=== PATIENT | female | born 1985 | race Caucasian/White ===

== ENCOUNTER 2016-08-08 05:40 | Day surgery (SDC) | payer OTHER ==
[2016-08-04 11:24] LABS: HEMATOCRIT 35.1 % (36.0-47.0); HEMOGLOBIN 11.9 g/dL (12.0-15.5); HGB HCT DIFFERENCE 0.6; MEAN CORPUSCULAR HEMOGLOBIN 26.9 pg (27.0-33.4); MEAN CORPUSCULAR HGB CONC 33.9 g/dL (32.0-36.0); MEAN CORPUSCULAR VOLUME 79 fl (80-97); RED BLOOD COUNT 4.43 10^6/uL (3.72-5.28); RED CELL DISTRIBUTION WIDTH 13.5 % (11.5-14.0); WHITE BLOOD COUNT 5.6 10^3/uL (4.0-10.5)
[2016-08-04 11:37] LABS: APPEARANCE,URINE SLIGHTLY-CLOUDY; BILIRUBIN,URINE NEGATIVE (NEGATIVE); GLUCOSE, URINE NEGATIVE (NEGATIVE); KETONES,URINE NEGATIVE (NEGATIVE); LEUKOCYTE ESTERASE,URINE TRACE (NEGATIVE); NITRITE,URINE NEGATIVE (NEGATIVE); PROTEIN,URINE NEGATIVE (NEGATIVE); URINE SPECIFIC GRAVITY 1.028; UROBILINOGEN,URINE NEGATIVE mg/dL (<2.0)
[2016-08-04 11:51] LABS: ALANINE AMINOTRANSFERASE 53 U/L (9-52); ALKALINE PHOSPHATASE 69 U/L (38-126); ANION GAP 10 (5-19); ASPARTATE AMINO TRANSFERASE 37 U/L (14-36); BILIRUBIN,TOTAL 0.7 mg/dL (0.2-1.3); BLOOD UREA NITROGEN 13 mg/dL (7-20); CALCIUM 9.3 mg/dL (8.4-10.2); CARBON DIOXIDE 26 mmol/L (22-30); CHLORIDE 105 mmol/L (98-107); CREATININE RESULT 0.74 mg/dL (0.52-1.25); GLUCOSE 79 mg/dL (75-110); SODIUM 141.4 mmol/L (137-145); TOTAL PROTEIN 7.7 g/dL (6.3-8.2)
[2016-08-04 11:54] LABS: POTASSIUM 4.1 mmol/L (3.6-5.0)
[~2016-08-08 05:40] MED LIST: CEFAZOLIN 2 GM/D5W RTU 2 GM/50 ML RTUPB IV PRN; CEFAZOLIN SODIUM 2 GM in DEXTROSE 5%-WATER 100 ML IV PRN; LACTATED RINGERS 1000 ML IV PRN; LIDOCAINE 0.5% INJ-PF (5 MG/ML) 50 ML SDV SUBCUT PRN; NA PHOS,M-B/NA PHOS,DI-BA (ADULT) 133 ML ENEMA PR SCH
[2016-08-08] MEDS ORDERED: HYDROMORPHONE HCL INJ/PF 2 MG/ML AMPULE ONE (06:59)
[2016-08-08] MEDS ORDERED: MIDAZOLAM 2 MG/2 ML INJ ONE (06:59)
[2016-08-08] MEDS ORDERED: FENTANYL CITRATE INJ/PF 250 MCG/5 ML AMPULE ONE (06:59)
[2016-08-08] MEDS ORDERED: PROPOFOL INJ 200 MG/20 ML VIAL IV ONE (07:00)
[2016-08-08] MEDS ORDERED: ACETAMINOPHEN 100 ML IV ONE ×2 (07:00→14:00)
[2016-08-08] MEDS ORDERED: MEPERIDINE HCL/PF INJ 25 MG/1 ML DISP.SYRIN IV PRN (07:17)
[2016-08-08] MEDS ORDERED: DIPHENHYDRAMINE HCL 50 MG/ML VIAL IV PRN (07:17)
[2016-08-08] MEDS ORDERED: ONDANSETRON HCL INJ/PF 4 MG/2 ML SDV IV PRN ×2 (07:17→10:51)
[2016-08-08] MEDS ORDERED: MORPHINE SULFATE 10 MG/ML INJ IV PRN (07:17)
[2016-08-08] MEDS ORDERED: FENTANYL CITRATE INJ/PF 100 MCG/2 ML AMPUL IV PRN ×3 (07:17)
[2016-08-08] MEDS ORDERED: DIPHENHYDRAMINE HCL 50 MG/ML VIAL ONE (10:11)
[2016-08-08] MEDS ORDERED: SCOPOLAMINE HYDROBROMIDE 1.5 MG PATCH.TD72 ONE (10:18)
--- NOTE | 2016-08-08 10:31 | Operative Report ---
Operative Report DATE OF SURGERY: 08/08/16 PREOPERATIVE DIAGNOSIS: Chronic pelvic pain and heavy menses POSTOPERATIVE DIAGNOSIS: Same OPERATION: Robotic hysterectomy right salpingo-oophorectomy SURGEON: CRICKET EDDY [employer]INE [employer]URAL WELDER: OR staff ANESTHESIA: GA TISSUE REMOVED OR ALTERED: Uterus cervix right tube and ovary COMPLICATIONS: None ESTIMATED BLOOD LOSS: 100 mL INTRAOPERATIVE FINDINGS: Left ovary and tube appeared normal and were left in place PROCEDURE: The patient was taken back to the OR and placed in supine position. Gen. anesthesia was induced. She was placed in dorsolithotomy position using Marino stirrups. Her abdomen perineum and vagina were prepared and draped in sterile fashion. The Transerv care uterine manipulator was placed on the cervix. The Sheets was placed in the bladder. The incision was made above the umbilicus. The fascia was grasped and elevated and incised entering the abdominal cavity. The laparoscopic port was placed bluntly and laparoscopy confirmed appropriate placement. The 2 lateral ports were placed under laparoscopic visualization. The right lower quadrant port was placed under laparoscopic visualization. The robot was brought to the table after positioning the patient. The robot was docked. The insufflation device had been placed in the right lower quadrant port. View of the pelvis was very good. There were no adhesions. The right infundibulopelvic pedicle was ligated with bipolar cautery and cut with monopolar cautery. The ureter was identified well away from the pedicle prior to doing this. The broad ligament was cauterized and cut next to the right fallopian tube and moving toward the uterine body. The round ligament was cauterized and cut with bipolar and then monopolar cautery. Staying next to the uterine body the broad ligament was cauterized with bipolar and cut with monopolar anthony. On reaching the uterine artery staying next to uterine body of the uterine artery vessels were cauterized with bipolar and cut with monopolar. Next moving to the left side of the uterus and the ovary was left in place and therefore the utero-ovarian pedicle as well as the round ligament pedicle were cauterized with bipolar and cut with monopolar. The broad ligament was cauterized with bipolar and cut with monopolar cautery staying next to the uterine body. At the level of the uterine arteries staying next to the uterine body the vessels were cauterized with bipolar and cut with monopolar anthony. Anterior leaf of the broad ligament was cut creating a bladder flap. This tissue fell away nicely from the cervix. Next the cardinal ligaments were cauterized next to the cervix with bipolar cautery and cut with monopolar anthony. Upon reaching the vaginal cuff a circumferential incision was made on the V care cuff. The uterus was removed through the vagina. The vaginal cuff was then closed using 0 locked suture. This suture was started on the right side of the cuff incorporating anterior vaginal mucosa lateral vaginal sidewall and posterior vaginal mucosa. The suture was then placed in a running fashion incorporating anterior vaginal mucosa posterior vaginal cuff was it. Upon reaching the left angle anterior vaginal mucosa lateral vaginal sidewall and posterior vaginal cuff was brought together with the suture. Several running sutures were taken medially and the suture was then cut. Next each pedicle was inspected for bleeding. The pelvis was irrigated and fluid aspirated out of the pelvis with the suction device. Hemostasis was assured. The robot was undocked. Each port was removed under laparoscopic visualization. The umbilical port and scope were removed at same time. The fascia at the umbilicus was closed with a 2-0 Vicryl suture in a running fashion. Then at all 4 sites was closed with a 4-0 undyed Vicryl suture in a subcuticular fashion. The wounds were dressed. Patient was brought out anesthesia and taken to recovery room stable condition.
[2016-08-08] MEDS ORDERED: RINGERS SOLUTION,LACTATED 1,000 ML IV PRN (10:51)
[2016-08-08] MEDS ORDERED: HYDROMORPHONE HCL 2 MG TABLET PO PRN ×2 (10:52→10:53)
[2016-08-08] MEDS ORDERED: HYDROMORPHONE HCL INJ/PF 2 MG/ML AMPULE IV PRN ×2 (10:52→10:53)
[2016-08-08] MEDS ORDERED: VECURONIUM BROMIDE INJ 10 MG VIAL IV ONE (11:03)
[2016-08-08] MEDS ORDERED: KETOROLAC TROMETHAMINE 60 MG/2 ML SDV ONE (11:03)
[2016-08-08] MEDS ORDERED: LIDOCAINE 2% INJ-PF (20 MG/ML) 10 ML AMPUL ONE (11:03)
[2016-08-08] MEDS ORDERED: NEOSTIGMINE METHYLSULFATE 10 MG/10 ML VIAL ONE (11:03)
[2016-08-08] MEDS ORDERED: ONDANSETRON HCL INJ/PF 4 MG/2 ML SDV ONE (11:03)
[2016-08-08] MEDS ORDERED: DEXAMETHASONE SOD PHOSPHATE INJ 4 MG/1 ML VIAL ONE (11:03)
[2016-08-08] MEDS ORDERED: GLYCOPYRROLATE INJ 0.4 MG/2 ML VIAL ONE (11:03)
[2016-08-08] MEDS ORDERED: RINGERS SOLUTION,LACTATED 500 ML IV ONE (13:15)
[2016-08-08 15:54] LABS: HEMATOCRIT 33.7 % (36.0-47.0); HEMOGLOBIN 11.2 g/dL (12.0-15.5); HGB HCT DIFFERENCE -0.1; MEAN CORPUSCULAR HEMOGLOBIN 26.6 pg (27.0-33.4); MEAN CORPUSCULAR HGB CONC 33.4 g/dL (32.0-36.0); MEAN CORPUSCULAR VOLUME 80 fl (80-97); RED BLOOD COUNT 4.22 10^6/uL (3.72-5.28); RED CELL DISTRIBUTION WIDTH 13.7 % (11.5-14.0); WHITE BLOOD COUNT 11.4 10^3/uL (4.0-10.5)
[2016-08-08 16:16] LABS: ANION GAP 11 (5-19); BLOOD UREA NITROGEN 11 mg/dL (7-20); CARBON DIOXIDE 24 mmol/L (22-30); CHLORIDE 103 mmol/L (98-107); GLUCOSE 119 mg/dL (75-110); POTASSIUM 4.5 mmol/L (3.6-5.0); SODIUM 137.5 mmol/L (137-145)
[2016-08-08] MEDS ORDERED: KETOROLAC TROMETHAMINE INJ/PF 30 MG/1 ML SDV IV ONE (18:00)
[2016-08-08] MEDS: ACETAMINOPHEN WITH CODEINE #3 TABLET PO PRN (19:46)
[2016-08-09 06:20] LABS: HEMATOCRIT 29.7 % (36.0-47.0); HGB HCT DIFFERENCE 0.3; MEAN CORPUSCULAR HEMOGLOBIN 26.9 pg (27.0-33.4); MEAN CORPUSCULAR HGB CONC 33.7 g/dL (32.0-36.0); MEAN CORPUSCULAR VOLUME 80 fl (80-97); RED BLOOD COUNT 3.73 10^6/uL (3.72-5.28); RED CELL DISTRIBUTION WIDTH 13.6 % (11.5-14.0); WHITE BLOOD COUNT 7.7 10^3/uL (4.0-10.5)
[2016-08-09 06:39] LABS: ANION GAP 7 (5-19); BLOOD UREA NITROGEN 10 mg/dL (7-20); CALCIUM 8.5 mg/dL (8.4-10.2); CARBON DIOXIDE 25 mmol/L (22-30); CHLORIDE 106 mmol/L (98-107); CREATININE RESULT 0.65 mg/dL (0.52-1.25); GLUCOSE 96 mg/dL (75-110); POTASSIUM 4.1 mmol/L (3.6-5.0); SODIUM 137.7 mmol/L (137-145)
[2016-08-09] MEDS: ACETAMINOPHEN WITH CODEINE #3 TABLET PO PRN (09:09)
--- NOTE | 2016-08-09 09:28 | PDOC PROGRESS REPORT ---
Subjective Progress Note for:: 08/09/16 Subjective:: Doing well. Physical Exam - Physical Exam Vital Signs: Temp Pulse Resp BP Pulse Ox 98.6 F 73 16 109/62 100 08/09/16 08:25 08/09/16 08:25 08/09/16 08:25 08/09/16 08:25 08/09/16 08:25 Intake & Output 08/08/16 08/09/16 08/10/16 06:59 06:59 06:59 Intake Total 0 1580 Output Total 1325 Balance 0 255 Weight 81.65 kg General appearance: PRESENT: no acute distress Head exam: PRESENT: atraumatic GI/Abdominal exam: PRESENT: normal bowel sounds, soft. ABSENT: distended, guarding, mass, organolmegaly, rebound, tenderness Psychiatric exam: PRESENT: appropriate affect, normal mood. ABSENT: homicidal ideation, suicidal ideation - Gynecological Exam Labia: normal Urethra: normal Introitus: normal Perineum: normal Result Laboratory Results: 08/09/16 06:07 08/09/16 06:07 08/08/16 08/08/16 08/09/16 15:45 15:45 06:07 WBC 11.4 H 7.7 RBC 4.22 3.73 Hgb 11.2 L 10.0 L Hct 33.7 L 29.7 L MCV 80 80 MCH 26.6 L 26.9 L MCHC 33.4 33.7 RDW 13.7 13.6 Plt Count 222 193 Sodium 137.5 Potassium 4.5 Chloride 103 Carbon Dioxide 24 Anion Gap 11 BUN 11 Creatinine 0.60 Est GFR ( Amer) > 60 Est GFR (Non-Af Amer) > 60 Glucose 119 H Calcium 9.0 08/09/16 06:07 WBC RBC Hgb Hct MCV MCH MCHC RDW Plt Count Sodium 137.7 Potassium 4.1 Chloride 106 Carbon Dioxide 25 Anion Gap 7 BUN 10 Creatinine 0.65 Est GFR ( Amer) > 60 Est GFR (Non-Af Amer) > 60 Glucose 96 Calcium 8.5 Assessment & Plan - Diagnosis (1) Pelvic pain Is this a current diagnosis for this admission?: Yes (2) Menorrhagia Qualifiers: Menorrahagia type: with irregular cycle Qualified Code(s): N92.1 - Excessive and frequent menstruation with irregular cycle Is this a current diagnosis for this admission?: Yes - Time Time Spent with patient: 15-24 minutes Medications reviewed and adjusted accordingly: Yes Anticipated discharge: Home Within: within 24 hours Disposition: followup in a week
--- NOTE | 2016-08-09 09:31 | PDOC DISCHARGE SUMMARY ---
Final Diagnosis Discharge Date: 08/09/16 - Final Diagnosis (1) Pelvic pain Is this a current diagnosis for this admission?: Yes (2) Menorrhagia Is this a current diagnosis for this admission?: Yes Discharge Data - Discharge Medication Home Medications: No Home Medications 08/04/16 Reason(s) for Admission: Other - Pelvic pain and menorrhagia Admission Note: Patient was admitted for robotic hysterectomy. Due to her pelvic pain she also wished to have her right ovary and tube removed. - Diagnosis Test Laboratory: Temp Pulse Resp BP Pulse Ox 98.6 F 73 16 109/62 100 08/09/16 08:25 08/09/16 08:25 08/09/16 08:25 08/09/16 08:25 08/09/16 08:25 08/04/16 08/08/16 08/09/16 10:35 15:45 06:07 RBC 4.43 4.22 3.73 Hgb 11.9 L 11.2 L 10.0 L Hct 35.1 L 33.7 L 29.7 L - Discharge information/Instructions Discharge Activity: Balance Activity w/Rest, Pelvic Rest Discharge Diet: As Tolerated Disposition: HOME, SELF-CARE Follow up with: [facility] in: 1 - Week
[2016-08-09 10:18] VITALS: BP 122/76
== END 2016-08-09 10:50 | disposition home or self-care (01) ==
LOC: OROUT 05:40 → 2N 11:15 → OROUT 08-09 10:50
PROVIDERS: ATTEND Obstetrics & Gynecology
PROC: 0UTC4ZZ Resection of Cervix, Percutaneous Endoscopic Approach (ICD-10-PCS; 2016-08-08)
PROC: 0UT04ZZ Resection of Right Ovary, Percutaneous Endoscopic Approach (ICD-10-PCS; 2016-08-08)
PROC: 0UT54ZZ Resection of Right Fallopian Tube, Percutaneous Endoscopic Approach (ICD-10-PCS; 2016-08-08)
PROC: 8E0W4CZ Robotic Assisted Procedure of Trunk Region, Percutaneous Endoscopic Approach (ICD-10-PCS; 2016-08-08)
PROC: 0UT94ZZ Resection of Uterus, Percutaneous Endoscopic Approach (ICD-10-PCS; principal; 2016-08-08 07:30)
DX: N83.201 Unspecified ovarian cyst, right side (principal); R10.2 Pelvic and perineal pain; N92.0 Excessive and frequent menstruation with regular cycle; N72 Inflammatory disease of cervix uteri; N30.10 Interstitial cystitis (chronic) without hematuria; Z79.899 Other long term (current) drug therapy
CPT/HCPCS: 58571; S2900; 36415; 80048; 80053; 81001; 81025; 840; 85027; 86850; 86900; 86901; 88307; J0131; J0690; J1100; J1170; J1200; J1885; J2250; J2405; J2704; J3010; J3490; J7120

== ENCOUNTER 2019-04-03 10:33 | Emergency (ER) | payer SELFPAY ==
[2019-04-03] MEDS ORDERED: DIPHENHYDRAMINE HCL 50 MG/ML VIAL IV ONE (11:57)
[2019-04-03] MEDS ORDERED: FAMOTIDINE INJ/PF 20 MG/2 ML SDV IV ONE (11:57)
--- NOTE | 2019-04-03 13:31 | ER Document Report ---
Entered by SERINA ANTHONY SCRIBE 04/03/19 1156 Acting as scribe for:AMANDA PRUITT MD ED General - General Chief Complaint: Facial Droop Stated Complaint: FACIAL NUMBNESS Time Seen by Provider: 04/03/19 11:40 Primary Care Provider: DAVID SHELBY MD [Primary Care Provider] - Follow up as needed Information source: Patient Notes: 33-year-old female who presents to the emergency department today for right- sided facial swelling. Patient states last night she noticed that her hands were very itchy and she felt nauseated but did not think anything of it. Pat ient states this morning when she woke up her right eye was puffy and as the day has gone on this swelling has moved down the right side of her face. Patient states her face is not itchy. Patient states her face goes from feeling numb to having pain. Patient states she has minimally blurry vision of her right eye. Patient states the only thing she knows that she is allergic to his Phenergan. TRAVEL OUTSIDE OF THE [place] IN LAST 30 DAYS: No - Related Data Allergies/Adverse Reactions: latex [Latex] Allergy (Severe, Verified 08/04/16 09:59) rash promethazine [From Phenergan] Allergy (Severe, Verified 08/04/16 10:20) Hives Past Medical History - General Information source: Patient - Social History Smoking Status: Never Smoker Cigarette use (# per day): No Chew tobacco use (# tins/day): No Frequency of alcohol use: Occasional Drug Abuse: None Occupation: [employer] Family History: Reviewed & Not Pertinent Patient has suicidal ideation: No Patient has homicidal ideation: No Renal/ Medical History: Reports: Hx Kidney Stones, Hx Ovarian Cysts Past Surgical History: Reports: Hx Tubal Ligation - Immunizations Hx Diphtheria, Pertussis, Tetanus Vaccination: Yes Review of Systems - Review of Systems Constitutional: No symptoms reported EENT: See HPI, Other - right sided facial swelling Cardiovascular: No symptoms reported Respiratory: No symptoms reported Gastrointestinal: No symptoms reported Genitourinary: No symptoms reported Female Genitourinary: No symptoms reported Musculoskeletal: No symptoms reported Skin: See HPI Hematologic/Lymphatic: No symptoms reported Neurological/Psychological: No symptoms reported -: Yes All other systems reviewed and negative Physical Exam - Vital signs Vitals: Temp Pulse Resp BP Pulse Ox 97.8 F 77 16 129/71 H 98 04/03/19 10:38 04/03/19 10:38 04/03/19 10:38 04/03/19 10:38 04/03/19 10:38 - Notes Notes: Physical Exam: General: Alert, appears well. HEENT: Normocephalic. Atraumatic. PERRL. Extraocular movements intact. Oropharynx clear. No carotid bruits. Mild edema to upper and lower right e yelid. Edema over the infraorbital ridge on the right with tenderness to palpation. Edema over the right zygomatic arch. There is edema to the right upper lip, less edema to the right lower lip. This edema causes some distortion of the face however there is no muscle weakness. Neck: Supple. Non-tender. Respiratory: No respiratory distress. Clear and equal breath sounds bilaterally. Cardiovascular: Regular rate and rhythm. Abdominal: Normal Inspection. Non-tender. No distension. Normal Bowel Sounds. Back: No gross abnormalities. Extremities: Moves all four extremities. Upper extremities: Normal inspection. Normal ROM. Lower extremities: Normal inspection. No edema. Normal ROM. Neurological: Normal cognition. AAOx4. Normal speech. Psychological: Normal affect. Normal Mood. Skin: Mild erythema to bilateral hands palmar aspect. Course - Re-evaluation Re-evalutation: 04/03/19 13:45 At this time the itching to the hands is resolved. The swelling to the lips has resolved. The swelling in the periorbital region has resolved. There appears to be some minimal swelling to the right face persists. 04/03/19 13:45 I have advised the patient that given that the reaction involved only the right face from the eye down to the lips, and both hands, it is likely she came in contact with something on both of her hands and happened to rub the right face transferring the allergen to the skin on the face. - Vital Signs Vital signs: Temp Pulse Resp BP Pulse Ox 97.8 F 77 16 129/71 H 98 04/03/19 10:38 04/03/19 10:38 04/03/19 10:38 04/03/19 10:38 04/03/19 10:38 Discharge - Discharge Clinical Impression: Allergic reaction Qualifiers: Encounter type: initial encounter Qualified Code(s): T78.40XA - Allergy, unspecified, initial encounter Condition: Stable Disposition: HOME, SELF-CARE Additional Instructions: Acute Allergic Reaction Your symptoms are due to an allergic reaction. Allergy can cause hives, swelling of the hands, feet, and face, hoarseness, and difficulty swallowing or breathing. It may be due to exposure to medication, animal dander, foods, infection, or insect bites. Medication is a common cause, even when prior use of this same medication caused no problems. Acute treatment may include adrenalin and antihistamines. Usually, the specific allergic agent can't be identified unless repeated episodes occur. Home treatment includes the following: (1) Stop any suspicious medications. This will be discussed with you. (2) Oral antihistamines for the next four to five days. Example, diphenhydramine (Benadryl) every four hours. (3) You may also use cimetidine (Tagamet), ranitidine (Zantac), or famotidine (Pepcid) every four hours if diphenhydramine is not controlling itching and hives. (4) Avoid aspirin until the hives completely disappear. (5) Avoid hot bahs or showers until the hives are completely gone. Call the doctor if faintness, difficulty swallowing, tightness in the chest, or wheezing occurs. Referrals: DAVID SHELBY MD [Primary Care Provider] - Follow up as needed Scribe Attestation: 04/03/19 13:46 I personally performed the services described in the documentation, reviewed and edited the documentation which was dictated to the scribe in my presence, and it accurately records my words and actions. I personally performed the services described in the documentation, reviewed and edited the documentation which was dictated to the scribe in my presence, and it accurately records my words and actions.
[2019-04-03 14:12] VITALS: BP 126/69
== END 2019-04-03 14:13 | disposition home or self-care (01) ==
LOC: ER 10:33
DX: T78.40XA Allergy, unspecified, initial encounter (principal); R22.0 Localized swelling, mass and lump, head; R51 Headache; R20.0 Anesthesia of skin; H53.8 Other visual disturbances; X58.XXXA Exposure to other specified factors, initial encounter; Z88.8 Allergy status to other drugs, medicaments and biological substances; Z91.040 Latex allergy status
CPT/HCPCS: 99283; 96374; 96375; J1200; S0028

== ENCOUNTER → 2019-05-28 | Outpatient (CLI) | payer SELFPAY ==
--- NOTE | 2019-05-28 12:22 | WOMENS IMAGING REPORT ---
EXAM DESCRIPTION: U/S ABDOMEN LIMITED COMPLETED DATE/TIME: 05/28/2019 8:19 am REASON FOR STUDY: R74.8 ABNORMAL LEVELS OF OTHER SERUM ENZYMES R74.8 ABNORMAL LEVELS OF OTHER SERUM ENZYMES COMPARISON: None. TECHNIQUE: Dynamic and static grayscale images acquired of the abdomen and recorded on PACS. Additio nal selected color Doppler and spectral images recorded. LIMITATIONS: None. FINDINGS: PANCREAS: The pancreas is not visualized due to overlying bowel gas. LIVER: The liver measures 12.0 cm in length, normal size. No masses. Echotexture normal. LIVER VASCULATURE: Normal directional flow of the main portal vein and hepatic veins. GALLBLADDER: The gallbladder is contracted. The patient states that she is NPO. The gallbladder wa ll measures 4.2 mm diffuse gallbladder wall thickening. No pericholecystic fluid. ULTRASOUND-DETECTED MARTINEZ'S SIGN: Negative. INTRAHEPATIC DUCTS AND COMMON DUCT: CBD measures 2.9 mm in diameter, normal. The intrahepatic ducts normal caliber. No filling defects. INFERIOR VENA CAVA: Normal flow. AORTA: No aneurysm. RIGHT KIDNEY: The right kidney measures 9.9 x 4.2 x 4.8 cm, normal size. Normal echogenicity. No neena id or suspicious masses. No hydronephrosis. No calcifications. PERITONEAL AND RIGHT PLEURAL SPACE: No ascites or effusions. OTHER: No other significant findings. IMPRESSION: 1. The gallbladder is contracted and diffuse gallbladder wall thickening is noted. The patient states that she is NPO. Correlation suggested. 2. The pancreas not visualized due to overlying bowel gas. TECHNICAL DOCUMENTATION: JOB ID: [id number] [employer]- All Rights Reserved Reading location - IP/workstation name: [email or web address]
== END ==
LOC: WI 07:15
PROVIDERS: ATTEND Nurse Practitioner Family
DX: R74.8 Abnormal levels of other serum enzymes (principal)
CPT/HCPCS: 76705

== ENCOUNTER 2019-06-10 08:33 | Emergency (ER) | payer SELFPAY ==
[2019-06-10] MEDS ORDERED: ONDANSETRON 4 MG TAB.RAPDIS PO ONE (09:26)
[2019-06-10] MEDS ORDERED: ASPIRIN 81 MG TABLET, CHEWABLE PO ONE (09:26)
--- NOTE | 2019-06-10 09:29 | ER Document Report ---
ED Medical Screen (RME) - General Chief Complaint: Chest Pain Stated Complaint: CHEST PAIN Time Seen by Provider: 06/10/19 09:17 Primary Care Provider: RAVINDER MELENDEZ NP [Primary Care Provider] - Follow up as needed TRAVEL OUTSIDE OF THE [place] IN LAST 30 DAYS: No - HPI Notes: 06/10/19 09:27 33-year-old female presents emergency room for complaints of right upper chest pain that radiates to her shoulder that started 2 days ago as well as right upper quadrant pain that started approximately a week ago, has become progressively worse. Patient did see her PCP for this issue, her liver enzymes were 3 times the upper limit, did have an ultrasound of her liver which appeared normal at the time. Patient states that yesterday her symptoms became progressively worse started vomiting. Patient states that she is awaiting a referral to be seen by a surgeon for cholecystectomy but patient has not heard back from her PCPs office. Denies any fevers chills, diarrhea, shortness of breath. Has not tried any [id number] medications. Patient states she is a social drinker. I have greeted and performed a rapid initial assessment of this patient. A comprehensive ED assessment and evaluation of the patient, analysis of test results and completion of the medical decision making process will be conducted by additional ED providers. PHYSICAL EXAMINATION: GENERAL: Well-appearing, well-nourished and in no acute distress. HEAD: Atraumatic, normocephalic. NECK: Normal range of motion LUNGS: No respiratory distress abd: slight tenderness to RUQ/LUQ Musculoskeletal: Normal range of motion NEUROLOGICAL: Normal speech, normal gait. PSYCH: Normal mood, normal affect. SKIN: Warm, Dry, normal turgor, no rashes or lesions noted. - Related Data Allergies/Adverse Reactions: latex [Latex] Allergy (Severe, Verified 06/10/19 09:15) rash promethazine [From Phenergan] Allergy (Severe, Verified 06/10/19 09:15) Hives Past Medical History - Past Medical History Cardiac Medical History: Denies: Hx Coronary Artery Disease, Hx Heart Attack, Hx Hypertension Pulmonary Medical History: Denies: Hx Asthma, Hx Bronchitis, Hx COPD, Hx Pneumonia Neurological Medical History: Denies: Hx Cerebrovascular Accident, Hx Seizures Renal/ Medical History: Reports: Hx Kidney Stones, Hx Ovarian Cysts Musculoskeltal Medical History: Denies Hx Arthritis Past Surgical History: Reports: Hx Tubal Ligation - Immunizations Hx Diphtheria, Pertussis, Tetanus Vaccination: Yes Physical Exam - Vital signs Vitals: Temp Pulse Resp BP Pulse Ox 99 F 78 18 130/83 H 97 06/10/19 08:54 06/10/19 08:54 06/10/19 08:54 06/10/19 08:54 06/10/19 08:54 Course - Vital Signs Vital signs: Temp Pulse Resp BP Pulse Ox 99 F 78 18 130/83 H 97 06/10/19 09:15 06/10/19 09:15 06/10/19 09:15 06/10/19 09:15 06/10/19 09:15 Doctor's Discharge - Discharge Referrals: RAVINDER MELENDEZ NP [Primary Care Provider] - Follow up as needed
--- NOTE | 2019-06-10 09:52 | RADIOLOGY REPORT (SQ) ---
EXAM DESCRIPTION: CHEST 2 VIEWS COMPLETED DATE/TIME: 06/10/2019 9:37 am REASON FOR STUDY: RUQ/LUQ abd, issue w/ gallballer, liver enzymes COMPARISON: None. EXAM PARAMETERS: NUMBER OF VIEWS: two views TECHNIQUE: Digital Frontal and Lateral radiographic views of the chest acquired. RADIATION DOSE: NA LIMITATIONS: none FINDINGS: LUNGS AND PLEURA: No opacities, masses or pneumothorax. No pleural effusion. MEDIASTINUM AND HILAR STRUCTURES: No masses or contour abnormalities. HEART AND VASCULAR STRUCTURES: Heart normal size. No evidence for failure. BONES: No acute findings. HARDWARE: None in the chest. OTHER: No other significant finding. IMPRESSION: NO ACUTE RADIOGRAPHIC FINDING IN THE CHEST. TECHNICAL DOCUMENTATION: JOB ID: [id number] [employer]- All Rights Reserved Reading location - IP/workstation name: [email or web address]
[2019-06-10 10:11] LABS: ABSOLUTE EOSINOPHILS # (AUTO) 0.2 10^3/uL (0.0-0.6); ABSOLUTE LYMPHOCYTES (AUTO) 1.6 10^3/uL (0.5-4.7); ABSOLUTE MONOCYTES (AUTO) 0.4 10^3/uL (0.1-1.4); ABSOLUTE NEUT (AUTO) 3.4 10^3/uL (1.7-8.2); BASOPHILS % (AUTO) 0.5 % (0-2); EOSINOPHILS % (AUTO) 3.1 % (0-6); LYMPHOCYTES % (AUTO) 28.8 % (13-45); MEAN CORPUSCULAR HEMOGLOBIN 29.1 pg (27.0-33.4); MEAN CORPUSCULAR HGB CONC 34.3 g/dL (32.0-36.0); MEAN CORPUSCULAR VOLUME 85 fl (80-97); MONOCYTES % (AUTO) 6.3 % (3-13); PLATELET COUNT 290 10^3/uL (150-450); RED BLOOD COUNT 4.48 10^6/uL (3.72-5.28); RED CELL DISTRIBUTION WIDTH 12.7 % (11.5-14.0); SEGMENTED NEUTROPHILS % (AUTO) 61.3 % (42-78); TOTAL CELLS COUNTED % (AUTO) 100 %; WHITE BLOOD COUNT 5.6 10^3/uL (4.0-10.5)
[2019-06-10 10:23] LABS: APPEARANCE,URINE SLIGHTLY-CLOUDY; BILIRUBIN,URINE NEGATIVE (NEGATIVE); COLOR,URINE YELLOW; GLUCOSE, URINE NEGATIVE (NEGATIVE); KETONES,URINE NEGATIVE (NEGATIVE); LEUKOCYTE ESTERASE,URINE NEGATIVE (NEGATIVE); NITRITE,URINE NEGATIVE (NEGATIVE); PROTEIN,URINE NEGATIVE (NEGATIVE); UROBILINOGEN,URINE NEGATIVE mg/dL (<2.0)
[2019-06-10 10:33] LABS: ALBUMIN 4.5 g/dL (3.5-5.0); ALKALINE PHOSPHATASE 70 U/L (38-126); ANION GAP 10 (5-19); ASPARTATE AMINO TRANSFERASE 28 U/L (14-36); BILIRUBIN,DIRECT 0.1 mg/dL (0.0-0.4); BILIRUBIN,TOTAL 0.7 mg/dL (0.2-1.3); BLOOD UREA NITROGEN 8 mg/dL (7-20); CALCIUM 9.6 mg/dL (8.4-10.2); CARBON DIOXIDE 26 mmol/L (22-30); CHLORIDE 104 mmol/L (98-107); GLUCOSE 99 mg/dL (75-110); POTASSIUM 4.7 mmol/L (3.6-5.0); TOTAL PROTEIN 7.9 g/dL (6.3-8.2)
--- NOTE | 2019-06-10 11:14 | RADIOLOGY REPORT (SQ) ---
EXAM DESCRIPTION: U/S ABDOMEN COMPLETE W/DOPPLER COMPLETED DATE/TIME: 06/10/2019 10:48 am REASON FOR STUDY: RUQ/LUQ abd, issue w/ gallballer, liver enzymes COMPARISON: 05/28/2019 TECHNIQUE: Dynamic and static grayscale images acquired of the abdomen and recorded on PACS. Additio nal selected color Doppler and spectral images recorded. Note: Study does not meet criteria for complete doppler/duplex scan LIMITATIONS: None. FINDINGS: PANCREAS: Visualized portions the pancreas are normal in appearance. LIVER: No masses. Echotexture normal. LIVER VASCULATURE: Normal directional flow of the main portal vein and hepatic veins. GALLBLADDER: No stones. Normal wall thickness. No pericholecystic fluid. ULTRASOUND-DETECTED MARTINEZ'S SIGN: Negative. INTRAHEPATIC DUCTS AND COMMON DUCT: CBD and intrahepatic ducts normal caliber. No filling defects. INFERIOR VENA CAVA: Normal flow. AORTA: No aneurysm. RIGHT KIDNEY: Normal size. Normal echogenicity. No solid or suspicious masses. No hydronephros is. No calcifications. LEFT KIDNEY: Normal size. Normal echogenicity. No solid or suspicious masses. No hydronephrosi s. No calcifications. SPLEEN: Normal size. No solid masses. PERITONEAL AND PLEURAL SPACES: No ascites or effusions. OTHER: No other significant finding. IMPRESSION: NORMAL ABDOMINAL ULTRASOUND. TECHNICAL DOCUMENTATION: JOB ID: [id number] [employer]- All Rights Reserved Reading location - IP/workstation name: [email or web address]
--- NOTE | 2019-06-10 13:28 | ER Document Report ---
ED Cardiac - General Chief Complaint: Chest Pain Stated Complaint: CHEST PAIN Time Seen by Provider: 06/10/19 09:17 Primary Care Provider: RAVINDER MELENDEZ NP [Primary Care Provider] - Follow up as needed Mode of Arrival: Ambulatory Information source: Patient TRAVEL OUTSIDE OF THE [place] IN LAST 30 DAYS: No - HPI Patient complains to provider of: Chest pain, Other - Sharp right sided sternal chest wall pain. This pain is been present off and on for the last 3 weeks. Patient is seen her primary care doctor and has been diagnosed as having gallbladder disease and plans to follow-up with a GI specialist in early June. Patient states the pain seems to be increasing in nature therefore she is come to the emergency department she denies any nausea vomiting chills fever. Denies cough shortness of breath. Was the onset of pain: Gradual Chest pain location: Other - Right costochondral sternal junction Quality of pain: Sharp Severity now: Moderate Severity at worst: Moderate Pain level currently: 0 Cardiac risk factors: None Associated symptoms: Anxiety - Patient notes that her right arm gets tingly when she has this pain. Exacerbated by: Other - Patient is not sure of any exacerbating activity that brings on this chest pain. Relieved by: Nothing - Related Data Allergies/Adverse Reactions: latex [Latex] Allergy (Severe, Verified 06/10/19 09:15) rash promethazine [From Phenergan] Allergy (Severe, Verified 06/10/19 09:15) Hives ondansetron [From Zofran] Allergy (Verified 06/10/19 14:21) Past Medical History - Social History Smoking Status: Never Smoker Cigarette use (# per day): No Family History: Reviewed & Not Pertinent Patient has suicidal ideation: No Patient has homicidal ideation: No - Past Medical History Cardiac Medical History: Denies: Hx Coronary Artery Disease, Hx Heart Attack, Hx Hypertension Pulmonary Medical History: Denies: Hx Asthma, Hx Bronchitis, Hx COPD, Hx Pneumonia Neurological Medical History: Denies: Hx Cerebrovascular Accident, Hx Seizures Renal/ Medical History: Reports: Hx Kidney Stones, Hx Ovarian Cysts Musculoskeletal Medical History: Denies Hx Arthritis Past Surgical History: Reports: Hx Section - X2, Hx Hysterectomy, Hx Tubal Ligation - Immunizations Hx Diphtheria, Pertussis, Tetanus Vaccination: Yes Review of Systems - Review of Systems Constitutional: See HPI EENT: No symptoms reported Cardiovascular: No symptoms reported Respiratory: No symptoms reported Gastrointestinal: No symptoms reported Genitourinary: No symptoms reported Musculoskeletal: No symptoms reported, See HPI Hematologic/Lymphatic: No symptoms reported Neurological/Psychological: No symptoms reported Physical Exam - Vital signs Vitals: Temp Pulse Resp BP Pulse Ox 99 F 78 18 130/83 H 97 06/10/19 08:54 06/10/19 08:54 06/10/19 08:54 06/10/19 08:54 06/10/19 08:54 Interpretation: Normal - General General appearance: Appears well, Alert - HEENT Head: Normocephalic, Atraumatic Eyes: Normal Pupils: PERRL - Respiratory Respiratory status: No respiratory distress Chest status: Nontender Breath sounds: Normal Chest palpation: Normal - Cardiovascular Rhythm: Regular Heart sounds: Normal auscultation Murmur: No Friction rub: No - Abdominal Inspection: Normal Distension: No distension Bowel sounds: Normal Tenderness: Nontender Organomegaly: No organomegaly - Back Back: Normal, Nontender - Extremities General upper extremity: Normal inspection, Nontender, Normal color, Normal ROM, Normal temperature General lower extremity: Normal inspection, Nontender, Normal color, Normal ROM, Normal temperature, Normal weight bearing. No: Nazia's sign - Neurological Neuro grossly intact: Yes Cognition: Normal Orientation: AAOx4 Dale Coma Scale Eye Opening: Spontaneous Dale Coma Scale Verbal: Oriented Dale Coma Scale Motor: Obeys Commands Anum Coma Scale Total: 15 Speech: Normal Cranial nerves: Other - Right upper lip slightly flaccid. Patient states this happened after she had received medications of aspirin and Zofran while in the department. States a similar reaction occurred when she received Phenergan another time while in the emergency department. Motor strength normal: LUE, RUE, LLE, RLE Sensory: Normal - Psychological Associated symptoms: Normal affect, Normal mood - Skin Skin Temperature: Warm Skin Moisture: Dry Skin Color: Normal Course - Vital Signs Vital signs: Temp Pulse Resp BP Pulse Ox 98.7 F 72 16 109/55 L 99 06/10/19 15:23 06/10/19 15:23 06/10/19 15:23 06/10/19 15:23 06/10/19 15:23 - Laboratory Result Diagrams: 06/10/19 09:40 06/10/19 09:40 Laboratory results interpreted by me: 06/10/19 09:40 D-Dimer 0.81 H - Diagnostic Test Radiology reviewed: Image reviewed, Reports reviewed - EKG Interpretation by Me EKG shows normal: Sinus rhythm Rate: Normal Rhythm: NSR Discharge - Discharge Clinical Impression: Acute chest wall pain Allergic reaction Qualifiers: Encounter type: subsequent encounter Qualified Code(s): T78.40XD - Allergy, unspecified, subsequent encounter Condition: Stable Disposition: HOME, SELF-CARE Instructions: Chest Wall Pain ([facility]) Additional Instructions: Patient is not instructed to begin ibuprofen 800 mg with meals 3 times a day if needed for chest wall pain. Also patient is advised to begin Benadryl 25 to 50 mg every 6 hours if needed for lip swelling. Patient is advised to try and seek out information that may be causing her lip to swell such as types of food she is eating her medications he may have taken. Allergic Contact Dermatitis You have a local allergic reaction, called contact dermatitis. This an allergy to something in contact with your skin. Poison sade, jewelry, soaps, perfumes, and chemicals are common causes. Typically, an itchy rash develops a few days after the exposure. If the reaction is severe, blisters may develop. Two to three weeks may be required for healing. Generally, treatment consists of: (1) a thorough washing with soap to remove the offending substance, (2) application of a cortisone cream, and (3) antihistamines for itching. If the reaction is particularly severe, further measures may be required. These can include soaking in epsom salts or Mehrdad's solution, and oral cortisone medications. Call the doctor if the rash worsens despite treatment, or if signs of infection occur such as spreading redness, red streaks, swollen glands, swelling, or fever. Prescriptions: Prednisone [Deltasone 20 mg Tablet] 2 tab PO DAILY 5 Days #10 tablet Referrals: RAVINDER MELENDEZ NP [Primary Care Provider] - Follow up as needed
[2019-06-10] MEDS ORDERED: DIPHENHYDRAMINE HCL 25 MG CAPSULE PO ONE (14:12)
--- NOTE | 2019-06-10 14:14 | EKG REPORT ---
SEVERITY:- NORMAL ECG - SINUS RHYTHM : Confirmed by: Kia Nieves 10-Jun-2019 14:13:55
--- NOTE | 2019-06-10 14:14 | ER Document Report ---
ED Cardiac - General Chief Complaint: Chest Pain Stated Complaint: CHEST PAIN Time Seen by Provider: 06/10/19 09:17 Primary Care Provider: RAVINDER MELENDEZ NP [Primary Care Provider] - Follow up as needed Mode of Arrival: Ambulatory TRAVEL OUTSIDE OF THE [place] IN LAST 30 DAYS: No - Related Data Allergies/Adverse Reactions: latex [Latex] Allergy (Severe, Verified 06/10/19 09:15) rash promethazine [From Phenergan] Allergy (Severe, Verified 06/10/19 09:15) Hives Past Medical History - General Information source: Patient - Social History Smoking Status: Never Smoker Cigarette use (# per day): No Family History: Reviewed & Not Pertinent Patient has suicidal ideation: No Patient has homicidal ideation: No - Past Medical History Cardiac Medical History: Denies: Hx Coronary Artery Disease, Hx Heart Attack, Hx Hypertension Pulmonary Medical History: Denies: Hx Asthma, Hx Bronchitis, Hx COPD, Hx Pneumonia Neurological Medical History: Denies: Hx Cerebrovascular Accident, Hx Seizures Renal/ Medical History: Reports: Hx Kidney Stones, Hx Ovarian Cysts Musculoskeletal Medical History: Denies Hx Arthritis Past Surgical History: Reports: Hx Section - X2, Hx Hysterectomy, Hx Tubal Ligation - Immunizations Hx Diphtheria, Pertussis, Tetanus Vaccination: Yes Physical Exam - Vital signs Vitals: Temp Pulse Resp BP Pulse Ox 99 F 78 18 130/83 H 97 06/10/19 08:54 06/10/19 08:54 06/10/19 08:54 06/10/19 08:54 06/10/19 08:54 Course - Vital Signs Vital signs: Temp Pulse Resp BP Pulse Ox 99 F 78 18 130/83 H 97 06/10/19 09:15 06/10/19 09:15 06/10/19 09:15 06/10/19 09:15 06/10/19 09:15 - Laboratory Result Diagrams: 06/10/19 09:40 06/10/19 09:40 Laboratory results interpreted by me: 06/10/19 09:40 D-Dimer 0.81 H Discharge - Discharge Referrals: RAVINDER MELENDEZ NP [Primary Care Provider] - Follow up as needed
--- NOTE | 2019-06-10 14:54 | RADIOLOGY REPORT (SQ) ---
EXAM DESCRIPTION: CT HEAD WITHOUT COMPLETED DATE/TIME: 06/10/2019 2:40 pm REASON FOR STUDY: right upper lip droop COMPARISON: None. TECHNIQUE: Axial images acquired through the brain without intravenous contrast. Images reviewed wi th bone, brain and subdural windows. Additional sagittal and coronal reconstructions were generated. Images stored on PACS. All CT scanners at this facility use dose modulation, iterative reconstruction, and/or weight based d osing when appropriate to reduce radiation dose to as low as reasonably achievable (ALARA). [facility]: Dose Right [facility]: CareDose [facility]: Dose Right [facility]: Teradose 4D [facility]: [facility] RADIATION DOSE: CT Rad equipment meets quality standard of care and radiation dose reduction techniq ues were employed. CTDIvol: 53.2 mGy. DLP: 1017 mGy-cm. mGy. LIMITATIONS: None. FINDINGS: VENTRICLES: Normal size and contour. CEREBRUM: No masses. No hemorrhage. No midline shift. No evidence for acute infarction. Normal gra y/white matter differentiation. No areas of low density in the white matter. CEREBELLUM: No masses. No hemorrhage. No alteration of density. No evidence for acute infarction. EXTRAAXIAL SPACES: No fluid collections. No masses. ORBITS AND GLOBE: No intra- or extraconal masses. Normal contour of globe without masses. CALVARIUM: No fracture. PARANASAL SINUSES: No fluid or mucosal thickening. SOFT TISSUES: No mass or hematoma. OTHER: No other significant finding. IMPRESSION: NORMAL BRAIN CT WITHOUT CONTRAST. EVIDENCE OF ACUTE STROKE: NO. COMMENT: Quality ID # [id number]: Final reports with documentation of one or more dose reduction techniques (e.g., Automated exposure control, adjustment of the mA and/or kV according to patient size, use of iterative reconstruction technique) TECHNICAL DOCUMENTATION: JOB ID: [id number] [employer]- All Rights Reserved Reading location - IP/workstation name: [email or web address]
[2019-06-10] MEDS ORDERED: METHYLPREDNISOLONE INJ 125 MG/2 ML SDV IV ONE (16:37)
--- NOTE | 2019-06-10 17:23 | RADIOLOGY REPORT (SQ) ---
EXAM DESCRIPTION: CTA CHEST COMPLETED DATE/TIME: 06/10/2019 5:09 pm REASON FOR STUDY: elevated d dimer/right sided chest pain COMPARISON: None. TECHNIQUE: CT scan of the chest performed using helical scanning technique with dynamic intravenous contrast injection. Images reviewed with lung, soft tissue and bone windows. Reconstructed coronal and sagittal MPR images reviewed. Additional 3 dimensional post-processing performed to develop Maximal Intensity Projection images (UT P). All images stored on PACS. All CT scanners at this facility use dose modulation, iterative reconstruction, and/or weight based d osing when appropriate to reduce radiation dose to as low as reasonably achievable (ALARA). [facility]: Dose Right [facility]: CareDose [facility]: Dose Right [facility]: Teradose 4D [facility]: Before the Call CONTRAST TYPE AND DOSE: contrast/concentration: Isovue 350.00 mg/ml; Total Contrast Delivered: 64.0 ml; Total Saline Delivered: 59.4 ml Contrast bolus optimized for the pulmonary arteries. Not diagnostic for the aorta. RENAL FUNCTION: GFR > 60. RADIATION DOSE: CT Rad equipment meets quality standard of care and radiation dose reduction techniq ues were employed. CTDIvol: 3.3 - 14.7 mGy. DLP: 543 mGy-cm. . LIMITATIONS: None. FINDINGS: LUNGS AND PLEURA: No masses, infiltrates, or pneumothorax. No pleural effusions or pleura l calcifications. AORTA AND GREAT VESSELS: No aneurysm. Contrast bolus not optimized for the aorta. HEART: No pericardial effusion. No significant coronary artery calcifications. PULMONARY ARTERIES: No emboli visualized in the main pulmonary arteries or the segmental branches. HILAR AND MEDIASTINAL STRUCTURES: No identified masses or abnormal nodes. HARDWARE: None in the chest. UPPER ABDOMEN: No significant findings. Limited exam. THYROID AND OTHER SOFT TISSUES: No masses. No adenopathy. BONES: No acute or significant finding. 3D MIPS: Confirm above findings. OTHER: No other significant finding. IMPRESSION: No acute findings. NO PULMONARY EMBOLI. COMMENT: Quality ID # [id number]: Final reports with documentation of one or more dose reduction techniques (e.g., Automated exposure control, adjustment of the mA and/or kV according to patient size, use of iterative reconstruction technique) TECHNICAL DOCUMENTATION: JOB ID: [id number] [place]-72 2010 [employer]- All Rights Reserved Reading location - IP/workstation name: [email or web address]
[2019-06-10 18:01] VITALS: BP 127/47
== END 2019-06-10 17:59 | disposition home or self-care (01) ==
LOC: ER 08:33
DX: R07.89 Other chest pain (principal); R10.11 Right upper quadrant pain; R20.2 Paresthesia of skin; T78.40XA Allergy, unspecified, initial encounter; Z91.040 Latex allergy status; Z87.442 Personal history of urinary calculi; Z90.710 Acquired absence of both cervix and uterus; K13.0 Diseases of lips
CPT/HCPCS: 93005; 36415; 83690; 85025; 81025; 80053; 81001; 84484; 85379; 71046; 76700; 93976; 70450; 71275; 93010; S0119; J2930; 96374; 99285